=== PATIENT | female | born 1980 | race Two or more races ===

== ENCOUNTER 2024-07-12 17:43 | Emergency (ER) | payer OTHER ==
[2024-07-12 17:56] VITALS: BP 119/72; PULSE 97; RESP 18; TEMP 98.4; BMI 21.4
[2024-07-12] MEDS ORDERED: METHOCARBAMOL 500 MG TABLET ONE (19:12)
[2024-07-12] MEDS ORDERED: IBUPROFEN 600 MG TABLET (FP) PO ONE (19:12)
[2024-07-12] MEDS: IBUPROFEN 600 MG TABLET (FP) PO ONE (19:14)
[2024-07-12] MEDS: METHOCARBAMOL 500 MG TABLET PO ONE (19:15)
== END 2024-07-12 20:13 | disposition home or self-care (01) ==
LOC: JERFT 17:43
DX: M54.2 Cervicalgia (principal); R51.9 Headache, unspecified; Y04.0XXA Assault by unarmed brawl or fight, initial encounter
CPT/HCPCS: 70450-TC; 72125-TC; 99284-25